=== PATIENT | female | born 1995 | race Caucasian/White ===

== ENCOUNTER 2017-11-19 18:58 | Emergency (ER) | payer BC ==
[~2017-11-19] VITALS: Ht 170.2 cm; Wt 61.2 kg
--- NOTE | 2017-11-19 19:57 | NUR ---
PT BIB FRIEND FROM [facility]. PER FRIEND, PT IS INTOXICATED ON ETOH. PT IS RESPONSIVE TO ONLY PAINFUL STIMULI. PT AMBULATED TO BED FROM W/C WITH ASSIST. VSS. AWAITING TO BE SEEN BY DEV TRACY.
[2017-11-19] MEDS ORDERED: IV NORMAL SALINE 1000 ML BAG IV ONE (21:15)
[2017-11-19 21:31] LABS: BASOPHILS % (AUTO) 0.7 % (0.0-2.0); EOSINOPHILS % (AUTO) 0.3 % (0.0-7.0); HEMOGLOBIN 14.3 g/dL (10.9-14.3); LYMPHOCYTES # (AUTO) 2.7 K/uL (20.0-40.0); LYMPHOCYTES % (AUTO) 38.4 % (20.5-51.5); MEAN CORPUSCULAR HEMOGLOBIN 30.3 uug (24.7-32.8); MEAN CORPUSCULAR HGB CONC 34 g/dL (32.3-35.6); MEAN CORPUSCULAR VOLUME 89.2 fL (75.5-95.3); MONOCYTES # (AUTO) 0.3 K/uL (2.0-10.0); MONOCYTES % (AUTO) 4.8 % (0.0-11.0); NEUTROPHILS % (AUTO) 55.8 % (38.5-71.5); PLATELET COUNT (AUTO) 297 K/uL (179-408); RED BLOOD CELL COUNT(AUTO) 4.71 MIL/uL (3.63-4.92); WHITE BLOOD COUNT (AUTO) 7.1 K/uL (3.8-11.8)
[2017-11-19 21:33] LABS: *BILIRUBIN,URIN NEGATIVE (NEGATIVE); *BLOOD, URINE NEGATIVE (NEGATIVE); *CLARITY,URINE CLEAR (CLEAR); *COLOR,URINE YELLOW (YELLOW); *KETONES,URINE NEGATIVE (NEGATIVE); *PROTEIN,URINE NEGATIVE (NEGATIVE); *UROBILINOGEN,URINE 0.2 E.U./dl (NORMAL); LEUKOCYTE ESTERASE ,URINE NEGATIVE (NEGATIVE); NITRITE, URINE NEGATIVE (NEGATIVE); PH,URINE 5.5 (5.0-8.0); UGLUCOSE NEGATIVE (NEGATIVE)
[2017-11-19 21:34] LABS: CARBON DIOXIDE 26 mmol/L (21-32); CHLORIDE 112 mmol/L (98-107); CREATININE 0.9 mg/dL (0.6-1.3); GLUCOSE 79 mg/dL (74-106); POTASSIUM 3.9 mmol/L (3.5-5.1); UREA NITROGEN, BLOOD 10 mg/dL (7-18)
[2017-11-19 21:35] LABS: BACTERIA,URINE NONE SEEN /HPF (NONE SEEN); RBC,URINE 0-3 /HPF (0-3); SQUAMOUS EPITHELIAL CELL,UR NONE SEEN /HPF (NONE SEEN); WBC,URINE 0-3 /HPF (0-3)
--- NOTE | 2017-11-19 21:37 | NUR ---
PT TAKEN TO RADIOLOGY FOR CT SCAN VIA GURNEY BY TRANS/RN.
[2017-11-19 21:40] LABS: ALANINE AMINOTRANSFERASE 21 U/L (14-59); ALKALINE PHOSPHATASE 69 U/L (50-136); ASPARTATE AMINOTRANSFERASE 18 U/L (15-37); BILIRUBIN,DIRECT 0.1 mg/dL (0.0-0.2); BILIRUBIN,TOTAL 0.4 mg/dL (0.2-1.0); TOTAL PROTEIN, SERUM 6.8 g/dL (6.4-8.2)
[2017-11-19 21:44] LABS: ACETAMINOPHEN < 2.0 ug/mL (10-30)
[2017-11-19 21:47] LABS: THYROID STIMULATING HORMONE 0.891 mIU/mL (0.358-3.740)
--- NOTE | 2017-11-19 21:48 | NUR ---
PT BACK IN ER FROM RADIOLOGY.
[2017-11-19 21:51] LABS: ETHANOL 304 MG/DL (0-0)
[2017-11-19 22:07] LABS: *AMPHETAMINE, URINE NEGATIVE (NEGATIVE); *BARBITURATE, URINE NEGATIVE (NEGATIVE); *CANNABINOID, URINE NEGATIVE (NEGATIVE); *COCCAINE, URINE NEGATIVE (NEGATIVE); *OPIATE, URINE NEGATIVE (NEGATIVE); *PHENCYCLIDINE SCREEN,URINE NEGATIVE (NEGATIVE)
--- NOTE | 2017-11-20 02:03 | NUR ---
DEV TRACY AT BEDSIDE FOR PT UPDATE.
--- NOTE | 2017-11-20 02:06 | NUR ---
PT AWAKE AND VSS. CALLED [facility] AND SPOKE WITH AKASH. AKASH WILL COME TO VP STRATEGIC PLANNING PT.
[2017-11-20 02:15] VITALS: BP 112/60
== END 2017-11-20 02:21 | disposition home or self-care (01) ==
LOC: ER 19:01
DX: F10.129 Alcohol abuse with intoxication, unspecified (principal)
CPT/HCPCS: 36415; 70030-TC; 70450; 71045; 80307; 84443; 85025; 85730; 87086; 93005; A4663; G0480; G0480-TC; J7030

== ENCOUNTER 2017-12-20 20:49 | Emergency (ER) | payer BC ==
[~2017-12-20] VITALS: Ht 154.9 cm; Wt 63.5 kg
--- NOTE | 2017-12-20 21:15 | NUR ---
[facility] A [facility]FF [facility]. PT PRESENTS TO THE ER ETOH INTOXICATED. PT ASSISTED TO BED. VSS. PT DOES NOT APPEAR TO BE IN ANY APPARENT DISTRESS AT THIS TIME.
[2017-12-20] MEDS ORDERED: ONDANSETRON 4 MG/2 ML VIAL ONE (21:29)
[2017-12-20] MEDS ORDERED: IV NORMAL SALINE 1000 ML BAG IV ONE (21:30)
[2017-12-20] MEDS ORDERED: ONDANSETRON 4 MG/2 ML VIAL IV ONE (21:30)
[2017-12-20 21:54] LABS: *BILIRUBIN,URIN NEGATIVE (NEGATIVE); *BLOOD, URINE Trace-intact (NEGATIVE); *CLARITY,URINE CLEAR (CLEAR); *COLOR,URINE YELLOW (YELLOW); *KETONES,URINE NEGATIVE (NEGATIVE); *PROTEIN,URINE NEGATIVE (NEGATIVE); *UROBILINOGEN,URINE 0.2 E.U./dl (NORMAL); LEUKOCYTE ESTERASE ,URINE NEGATIVE (NEGATIVE); NITRITE, URINE NEGATIVE (NEGATIVE); PH,URINE 5.5 (5.0-8.0); UGLUCOSE NEGATIVE (NEGATIVE)
[2017-12-20 21:55] LABS: BASOPHILS # (AUTO) 0.1 K/uL (0.0-8.0); BASOPHILS % (AUTO) 0.8 % (0.0-2.0); EOSINOPHILS # (AUTO) 0.1 K/uL (0.0-0.7); EOSINOPHILS % (AUTO) 0.7 % (0.0-7.0); HEMATOCRIT 41.3 % (31.2-41.9); LYMPHOCYTES # (AUTO) 3.2 K/uL (20.0-40.0); LYMPHOCYTES % (AUTO) 35.1 % (20.5-51.5); MEAN CORPUSCULAR HEMOGLOBIN 30.1 uug (24.7-32.8); MEAN CORPUSCULAR HGB CONC 34 g/dL (32.3-35.6); MEAN CORPUSCULAR VOLUME 88.7 fL (75.5-95.3); MONOCYTES # (AUTO) 0.6 K/uL (2.0-10.0); NEUTROPHILS # (AUTO) 5.2 K/uL (1.8-8.9); NEUTROPHILS % (AUTO) 56.4 % (38.5-71.5); PLATELET COUNT (AUTO) 277 K/uL (179-408); RED BLOOD CELL COUNT(AUTO) 4.66 MIL/uL (3.63-4.92); WHITE BLOOD COUNT (AUTO) 9.2 K/uL (3.8-11.8)
--- NOTE | 2017-12-20 21:56 | NUR ---
SIMEON CATH INSERTED PER MD ORDERS BY ME, W/ FEMALE LEVI (NANY). BED IN LOW AND LOCKED POSITION W/ BILATERAL SIDERAILS UP. PT POSITION IN SEMI COLMENARES'S.
[2017-12-20 22:01] LABS: MUCUS,URINE FEW /LPF (0-FEW); SQUAMOUS EPITHELIAL CELL,UR FEW /HPF (NONE SEEN); WBC,URINE 0-3 /HPF (0-3)
[2017-12-20 22:03] LABS: CARBON DIOXIDE 27 mmol/L (21-32); CHLORIDE 109 mmol/L (98-107); CREATININE 0.9 mg/dL (0.6-1.3); GLUCOSE 108 mg/dL (74-106); POTASSIUM 3.4 mmol/L (3.5-5.1); UREA NITROGEN, BLOOD 13 mg/dL (7-18)
[2017-12-20 22:07] LABS: ALANINE AMINOTRANSFERASE 19 U/L (14-59); ALKALINE PHOSPHATASE 68 U/L (50-136); ASPARTATE AMINOTRANSFERASE 13 U/L (15-37); BILIRUBIN,DIRECT 0.1 mg/dL (0.0-0.2); BILIRUBIN,TOTAL 0.6 mg/dL (0.2-1.0); TOTAL PROTEIN, SERUM 6.8 g/dL (6.4-8.2)
[2017-12-20 22:08] LABS: ACETAMINOPHEN < 2.0 ug/mL (10-30)
[2017-12-20 22:09] LABS: ETHANOL 338 MG/DL (0-0)
[2017-12-20 22:11] LABS: *AMPHETAMINE, URINE NEGATIVE (NEGATIVE); *BARBITURATE, URINE NEGATIVE (NEGATIVE); *CANNABINOID, URINE NEGATIVE (NEGATIVE); *COCCAINE, URINE NEGATIVE (NEGATIVE); *OPIATE, URINE NEGATIVE (NEGATIVE); *PHENCYCLIDINE SCREEN,URINE NEGATIVE (NEGATIVE)
[2017-12-20] MEDS: POTASSIUM CHLORIDE 10 MEQ TAB.PRT.SR PO ONE (23:00)
[2017-12-21] MEDS: POTASSIUM CHLORIDE 10 MEQ TAB.PRT.SR PO ONE (00:56)
[2017-12-21] MEDS ORDERED: POTASSIUM CHLORIDE 10 MEQ TAB.PRT.SR ONE (01:00)
--- NOTE | 2017-12-21 01:55 | NUR ---
PT REMAINS ASLEEP, BUT EASILY AROUSABLE. WILL CONTINUE TO MONITOR.
--- NOTE | 2017-12-21 04:46 | NUR ---
Patient discharged to home in stable conditon. Written and verbal after care instructions given. Patient verbalizes understanding of instructions. PT SELF-AMBULATED WITHOUT DIFFICULTY. SIMEON CATH REMOVED PRIOR TO D/C - CANNULA INTACT. VSS. ALL BELONGINGS W/ PT. PT PICKED UP BY STAFF MEMBER FROM [facility].
--- NOTE | 2017-12-21 04:47 | NUR ---
20G L AC IV ACCESS REMOVED PRIOR TO D/C - INNER CANNULA INTACT.
[2017-12-21 05:00] VITALS: BP 91/43
== END 2017-12-21 04:47 | disposition home or self-care (01) ==
LOC: ER 20:51
DX: F10.129 Alcohol abuse with intoxication, unspecified (principal); E87.6 Hypokalemia
CPT/HCPCS: 36415; 71045; 80048; 80076; 80307; 81001; 84702; 85025; 96374; 99285; G0480 ×2; G0481; J2405; A4663; J7030

== ENCOUNTER 2018-03-03 23:13 | Emergency (ER) | payer BC ==
[~2018-03-03] VITALS: Ht 154.9 cm; Wt 63.5 kg
--- NOTE | 2018-03-03 23:15 | NUR ---
Pt bib staff from [facility] for the c/o etoh intoxication. Upon assessment, pt is asleep/drowsy, arousable via tactile stimuli. Respirations even and unlabored. VSS. Safe environment implemented.
[2018-03-04 00:29] LABS: BASOPHILS % (AUTO) 0.4 % (0.0-2.0); EOSINOPHILS # (AUTO) 0.1 K/uL (0.0-0.7); EOSINOPHILS % (AUTO) 0.9 % (0.0-7.0); HEMATOCRIT 37.1 % (31.2-41.9); HEMOGLOBIN 12.6 g/dL (10.9-14.3); LYMPHOCYTES # (AUTO) 3.7 K/uL (20.0-40.0); LYMPHOCYTES % (AUTO) 46.6 % (20.5-51.5); MEAN CORPUSCULAR HEMOGLOBIN 30.2 uug (24.7-32.8); MEAN CORPUSCULAR HGB CONC 34 g/dL (32.3-35.6); MEAN CORPUSCULAR VOLUME 89.1 fL (75.5-95.3); MONOCYTES # (AUTO) 0.6 K/uL (2.0-10.0); MONOCYTES % (AUTO) 7.1 % (0.0-11.0); NEUTROPHILS # (AUTO) 3.6 K/uL (1.8-8.9); PLATELET COUNT (AUTO) 315 K/uL (179-408); RED BLOOD CELL COUNT(AUTO) 4.17 MIL/uL (3.63-4.92); WHITE BLOOD COUNT (AUTO) 7.9 K/uL (3.8-11.8)
[2018-03-04 00:40] LABS: ALANINE AMINOTRANSFERASE 13 U/L (14-59); ALKALINE PHOSPHATASE 89 U/L (50-136); ASPARTATE AMINOTRANSFERASE 7 U/L (15-37); BILIRUBIN,DIRECT 0.1 mg/dL (0.0-0.2); BILIRUBIN,TOTAL 0.2 mg/dL (0.2-1.0); CARBON DIOXIDE 28 mmol/L (21-32); CHLORIDE 107 mmol/L (98-107); CREATININE 0.8 mg/dL (0.6-1.3); GLUCOSE 102 mg/dL (74-106); POTASSIUM 3.6 mmol/L (3.5-5.1); TOTAL PROTEIN, SERUM 6.4 g/dL (6.4-8.2); UREA NITROGEN, BLOOD 16 mg/dL (7-18)
[2018-03-04 00:53] LABS: ETHANOL 451 MG/DL (0-0)
[2018-03-04 00:58] LABS: ACETAMINOPHEN < 2.0 ug/mL (10-30)
--- NOTE | 2018-03-04 01:13 | NUR ---
Pt sleeping in bed, no s/s of acute distress noted. Safe environment implemented.
--- NOTE | 2018-03-04 04:37 | NUR ---
Pt still sleeping at this time, no acute distress noted. VSS.
--- NOTE | 2018-03-04 06:30 | NUR ---
Pt remains asleep at this time, easily arousable via tactile stimuli. Pt offered pt to be assisted to restroom and pt refuses to use restroom at this time. Safe environment implemented.
--- NOTE | 2018-03-04 07:00 | NUR ---
recieved pt in bed, arousable, refused bf at this point.
[2018-03-04] MEDS ORDERED: diphenhydrAMINE 50 MG/1 ML VIAL IM ONE (08:30)
[2018-03-04] MEDS ORDERED: OLANZAPINE 10 MG VIAL IM ONE (08:30)
--- NOTE | 2018-03-04 09:14 | NUR ---
pt awake, axox4, pt says is ready to go back home. pt walks in steady gait. pt refused breakfast, water provided. called [facility] for pt pickup.
--- NOTE | 2018-03-04 09:27 | NUR ---
[facility]. copy of all studies provided.
[2018-03-04 09:31] VITALS: BP 101/53
== END 2018-03-04 09:32 | disposition home or self-care (01) ==
LOC: ER 23:14
DX: F10.129 Alcohol abuse with intoxication, unspecified (principal); Y90.8 Blood alcohol level of 240 mg/100 ml or more
CPT/HCPCS: 36415; 80048; 80076; 84702; 85025; 99283; G0480 ×3; G0481; A4663